=== PATIENT | female | born 1975 ===

== ENCOUNTER 2024-11-24 09:15 | Outpatient (AMB) | payer BC, SELFPAY ==
[2024-11-24 09:21] VITALS: BP 120/72
--- NOTE | 2024-11-24 09:21 | A.OFFVIS_ITS ---
Vital Signs 11/24/24 09:21 Height 5 ft 9 in BMI Reason not done Patient refused/unable BP 120/72 Intake Visit Reasons: KNOTTER Heavy Menses/PCP Ref Intake Note: Last pap 3 yrs ago hx cone bx 15 yrs ago Corrosion Engineer: Corrosion Engineer Present (Anu) Allergies No Known Allergies Allergy (Verified 11/24/24 09:30) Is last menstrual period known: Yes Last menstrual period: 11/08/24 HPI Comments Details: Patient is here today for a new patient consult due to heavy menstrual bleeding. Admits to having heavy menses her entire life. Cycles are regular, lasting 5-6 days, heavy for 4 days. She reports in the past she has had to have blood transfusions due to chronic anemia, sometimes forgets to take her iron tablets. She reports still actively having milk production after many years when squeezed out. Never had a mammogram, I don't want to know I have breast cancer , she would prefer not to treat. Has used the Mirena IUD in the past. History of anorexia pre years ago-lost 100 lb. Referral labs from 06/22/2024-TSH 3.06, hemoglobin 9.9, hematocrit 33.6. [facility] Medical History Anemia Surgical History Hx of tubal ligation Hx of dilation and curettage Family History Maternal Grandmother History of breast cancer Social History Alcohol intake: never Tobacco use type: Cigarette Cigarettes Per Day: 3 Sexual orientation: Straight/Heterosexual Gender identity: Female Female Reproductive History Menstrual Duration of menses: 6-7 days Date of last menstrual period: 11/08/24 control method: permanent sterilization Permanent Sterilization: BTL Total pregnancies: 8 Full term: 5 Number of Living Children: 5 Ab spontaneous: 3 Review of Systems Const All systems reviewed & are unremarkable except as noted in HPI and below Physical Exam Vital Signs: Last Vital Signs BP 120/72 11/24/24 09:21 Const General: cooperative, healthy appearing and no acute distress Orientation/consciousness: patient oriented x3 GI Inspection: Yes normal to inspection Palpation (GI): Soft to palpation and Other GI palpation findings present (Nontender) Rectal Exam - Female: visual inspection normal General: Yes bladder normal to palpation External Female Exam: normal appearance of the urethra Speculum Exam - Vagina: normal appearance of the vagina, normal palpation and normal vaginal discharge Speculum Exam - Cervix: normal appearance of the cervix, normal palpation and Other cervical findings present (Post Cone appearance, bled w/pap) Bimanual exam- vagina & uterus: normal bimanual exam, normal palpation, uterine size normal, bladder normal to palpation, normal palpation, uterine shape normal and non-tender Bimanual Exam- Adnexa, other: normal adnexae Neuro General: patient oriented x3 Results AMB Test Urine AMB Test Urine Negative Last Edit by MANNY Vargas on 11/24/24 09:39 Results Reviewed Results Reviewed: Laboratory Last Values [facility] Clinic Negative 11/24/24 09:38 Assessment & Plan Assessment & Plan (1) Abnormal uterine bleeding (AUB): Code(s): N93.9 - Abnormal uterine and vaginal bleeding, unspecified Category: Medical Plan: Plan ultrasound, CBC, Pap today, GC chlamydia and BV panel obtained. UPT is negative. Advised endometrial biopsy at follow up or hysteroscopy if indicated based on ultrasound findings. Counseled on treatment options including medications, hormonal IUD versus advanced interventions. Mirena IUD booklet given to review. Return to office for results and follow up care. Schedule annual exam visit. The patient expressed understanding and agreement with the plan of care. All of her questions and concerns were addressed to the best of my ability. (2) Discharge from breast: Code(s): N64.52 - Nipple discharge Plan Counseled regarding mammogram screening. Advised early detection with breast cancer screening preferred, rather than late diagnosis limiting treatment resulting in pore prognosis and outcome. Prolactin level ordered. Advised not to actively stimulate the breast tissue with for play or massage for several weeks before lab is drawn. Follow up breast exam after mammogram completed. The patient expressed understanding and agreement with the plan of care. All of her questions and concerns were addressed to the best of my ability. This note is constructed using voice recognition software. While every effort has been made to ensure accuracy, photo specialist errors may have been included. Orders: Orders US pelvic and transvaginal Today N93.9 - Abnormal uterine and vaginal bleeding, unspecified Complete Blood Count no Diff Today N93.9 - Abnormal uterine and vaginal bleeding, unspecified Pap Smear Today N93.9 - Abnormal uterine and vaginal bleeding, unspecified Prolactin Today N64.52 - Nipple discharge AMB HCG Urine Test Today N92.0 - Excessive and frequent menstruation with regular cycle, Z32.02 - Encounter for test, result negative Bacterial Vaginosis Panel Today . - Nipple discharge, N93.9 - Abnormal uterine and vaginal bleeding, unspecified CT NG by PCR Today . - Nipple discharge, N93.9 - Abnormal uterine and vaginal bleeding, unspecified HPV High risk Today . - Nipple discharge, N93.9 - Abnormal uterine and vaginal bleeding, unspecified Coding Level of Care Code New Pt Level 4 (70164) Diagnoses Abnormal uterine bleeding (AUB) N93.9 Discharge from breast
== END 2024-11-24 11:30 | disposition home or self-care (01) ==
LOC: HO.HWS 09:15
PROVIDERS: PCP Internal Medicine; Visit Provider Advanced Practice Midwife
DX: Z32.02 Encounter for pregnancy test, result negative (principal); N92.0 Excessive and frequent menstruation with regular cycle; N93.9 Abnormal uterine and vaginal bleeding, unspecified; N64.52 Nipple discharge
CPT/HCPCS: 99204

== ENCOUNTER 2024-11-24 09:15 | Outpatient (REF) | payer BC, SELFPAY ==
[2024-11-25 13:57] LABS: CT PCR NOT DETECTED (Not Detect.); NG PCR NOT DETECTED (Not Detect.)
[2024-11-25 16:54] LABS: Bacterial Vaginosis PCR POSITIVE (Negative); Candida Group PCR NOT DETECTED (Not Detect); Candida glab krusei PCR NOT DETECTED (Not Detect); Trichomonas vaginalis PCR NOT DETECTED (Not Detect)
[2024-12-01 14:10] LABS: HPV Genotype 16 Negative (Negative); HPV Genotype 18 Negative (Negative); HPV High Risk Positive (Negative)
== END 2024-11-24 09:16 | disposition home or self-care (01) ==
LOC: HO.LNP 09:15
PROVIDERS: PCP Internal Medicine; Visit Provider Advanced Practice Midwife
DX: N93.9 Abnormal uterine and vaginal bleeding, unspecified (principal); N64.52 Nipple discharge
CPT/HCPCS: 81025; 81515; 87491; 87591; 87626; 88175

== ENCOUNTER 2024-11-24 10:03 | Outpatient (REF) | payer BC, SELFPAY | END 2024-11-24 10:04 | disposition home or self-care (01) | LOC: HO.LAB 10:03 | PROVIDERS: Visit Provider Advanced Practice Midwife | DX: Z13.89 Encounter for screening for other disorder (principal) ==

== ENCOUNTER 2024-12-05 07:49 | Outpatient (REF) | payer BC, SELFPAY ==
[2024-12-05 08:28] LABS: Hematocrit 38.6 % (37.0-47.0); Hemoglobin 12.9 g/dl (12.0-16.0); Mean Corpuscular HGB Conc 33.4 g/dl (31.0-35.0); Mean Corpuscular Hemoglobin 29.7 pg (27.0-33.0); Mean Corpuscular Volume 88.9 fL (80.0-98.0); Mean Platelet Volume 9.5 fL (9.4-12.3); Platelet Count 234 X10*3/uL (160-400); Red Blood Count 4.34 X10*6/uL (4.20-5.50); Red Cell Distribution Width 12.7 % (11.0-16.0); White Blood Count 4.4 X10*3/uL (4.8-10.8)
[2024-12-06 05:48] LABS: Prolactin 12.9 ng/mL
== END 2024-12-05 07:50 | disposition home or self-care (01) ==
LOC: HO.LAB 07:49
PROVIDERS: PCP Internal Medicine; Visit Provider Advanced Practice Midwife
DX: N93.9 Abnormal uterine and vaginal bleeding, unspecified (principal); N64.52 Nipple discharge
CPT/HCPCS: 36415; 84146; 85027

== ENCOUNTER 2024-12-21 08:16 | Outpatient (AMB) | payer BC, SELFPAY ==
--- NOTE | 2024-12-21 08:23 | A.OFFVIS_ITS ---
Vital Signs 12/21/24 08:33 Height 5 ft 9 in BMI Reason not done Patient refused/unable Intake Visit Reasons: Colposcopy Barrel Bridge Assembler Required: No Information Interpreted: non-clinical & clinical Threader Operator: Threader Operator Present (Dori BRYANT) Accompanied by: Self / Same As Patient Allergies No Known Allergies Allergy (Verified 12/21/24 08:34) HPI Comments Details: Presenting referred from Radha Bose CNM regarding ascus/HPV high-risk posit hina, HPV 16/18 negative [facility] Medical History (Updated 12/21/24 @ 09:07 by Roverto Roman MD) Abnormal uterine bleeding (AUB) Anemia Surgical History (Updated 12/21/24 @ 09:07 by Roverto Roman MD) History of conization of cervix Hx of tubal ligation Hx of dilation and curettage Family History Maternal Grandmother History of breast cancer Social History Alcohol intake: never Tobacco use type: Cigarette Cigarettes Per Day: 3 Sexual orientation: Straight/Heterosexual Gender identity: Female Office Procedures Colposcopy Colposcopy: Pre-Procedure Counseling: Before beginning the procedure, I conducted comprehensive counseling with the patient. We thoroughly discussed the procedure itself, including its details, alternatives, and all associated risks. This included but not limited to the following complications such as bleeding, infection, and injury to the vagina, bladder, and vessels, as well as the potential need for transfusion with all its associated risks. Subsequently, the patient sign the consent. Pap smear result: LSIL. Urine test in office = Negative Procedure: During the procedure, the following steps were performed: A speculum was inserted, and acetic acid was applied. Colposcopy was conducted, allowing visualization of the transformation zone. Acetowhite lesions were identified at the 5+ 9+ 11+ 1 o'clock position. Cervical biopsies were obtained from the 5+ 9+ 11+ 1 o'clock position, followed by an endocervical curettage (ECC). Vaginoscopy of the upper vagina revealed no evidence of aceto-white lesions. Hemostasis was achieved using Monsel solution, and the patient tolerated the procedure well. Post-Procedure Instructions: The patient was advised to promptly contact the office or the after hours answering service or go to the emergency room if experiencing a temperature exceeding 100.4?F, abdominal pain, nausea/vomiting, or bleeding. Additionally, the patient was instructed to abstain from vaginal intercourse and bathtub use. The patient confirmed understanding of these instructions. Discharge Instructions: The patient was instructed to schedule a follow-up appointment in 2 weeks for further evaluation and management. Please note that this note was generated using a voice recognition program, and errors may have occurred during peoplesoft hrms developer. 66031-Zqoqrxwrc of cervix including upper vagina with biopsy and ECC Procedure code (CPT) selection complete Assessment & Plan Assessment & Plan (1) ASCUS with positive high risk HPV cervical: Code(s): R87.610 - Atypical squamous cells of undetermined significance on cytologic smear of cervix (ASC-US); R87.810 - Cervical high risk human papillomavirus (HPV) DNA test positive Category: Medical Plan: Discussed with the patient the result of her abnormal pap, its significance, risk of progression, persistence, and regression. the false positive/negative rate of a Pap smear as a screening test in detecting cervical cancer and the indication for a diagnostic test -colposcopy, biopsy, endocervical curettage. The patient verbalized understanding and agreed with the plan, all questions answered. Colposcopy biopsy ECC done, see procedure note Orders: Orders AMB HCG Urine Test Today Z32.02 - Encounter for test, result negative AMB Colposcopy Today R87.610 - Atypical squamous cells of undetermined significance on cytologic smear of cervix (ASC-US), R87.810 - Cervical high risk human papillomavirus (HPV) DNA test positive Coding Level of Care Code Procedure Only Diagnoses ASCUS with positive high risk HPV cervical R87.610; R87.810 CPT Codes Colposcopy - CPT: 10668-Zmnavldic of cervix including upper vagina with biopsy and ECC ([id number])
== END 2024-12-21 09:33 | disposition home or self-care (01) ==
LOC: HO.HWS 08:17
PROVIDERS: PCP Internal Medicine; Visit Provider Obstetrics & Gynecology
DX: R87.610 Atypical squamous cells of undetermined significance on cytologic smear of cervix (ASC-US) (principal); R87.810 Cervical high risk human papillomavirus (HPV) DNA test positive
CPT/HCPCS: 57454

== ENCOUNTER 2024-12-21 08:16 | Outpatient (REF) | payer BC, SELFPAY | END 2024-12-21 08:17 | disposition home or self-care (01) | LOC: HO.LNP 08:16 | PROVIDERS: PCP Internal Medicine; Visit Provider Obstetrics & Gynecology | DX: R87.610 Atypical squamous cells of undetermined significance on cytologic smear of cervix (ASC-US) (principal); R87.810 Cervical high risk human papillomavirus (HPV) DNA test positive | CPT/HCPCS: 57454; 88305; 88341; 88342 ==

== ENCOUNTER 2024-12-28 09:35 | Outpatient (AMB) | payer BC, SELFPAY ==
--- NOTE | 2024-12-28 09:35 | MHC.OFFVIS ---
Intake Visit Reasons: colpo results Allergies No Known Allergies Allergy (Verified 12/21/24 08:34) HPI Comments Details: The patient is scheduled a telehealth visit post colpo. The pathology showed the following: A. Endocervix, curettage: Endocervical glandular and squamous mucosa; negative for dysplasia. B. Cervix, 1:00, biopsy: Squamous mucosa; negative for dysplasia. C. Cervix, 5:00, biopsy: Squamous mucosa with inflammation and focal reactive changes; negative for dysplasia. D. Cervix, 9:00, biopsy: Squamous mucosa with inflammation and focal reactive changes; negative for dysplasia. E. Cervix, 11:00, biopsy: Squamous mucosa with focal inflammation and reactive changes; negative for dysplasia; no endocervical glandular component present. Comment: The atypical cells in the patient's previous Pap test ([id number]) are not seen in the current biopsy [facility] Medical History Abnormal uterine bleeding (AUB) Anemia Surgical History History of conization of cervix Hx of tubal ligation Hx of dilation and curettage Family History Maternal Grandmother History of breast cancer Social History Alcohol intake: never Tobacco use type: Cigarette Cigarettes Per Day: 3 Sexual orientation: Straight/Heterosexual Gender identity: Female Female Reproductive History Menstrual Age of Menarche: 4 Review of Systems Const All systems reviewed & are unremarkable except as noted in HPI and below Reports as per HPI and Reports no additional complaints GI Reports no additional complaints Reports no additional complaints Telehealth Telehealth Telehealth Platform: Telephone Location of provider rendering services: practice address Location of patient: address on file Patient Identification confirmed using: Name, : Yes Telehealth method: video Patient verbally consented to treatment: Yes Patient verbally consented to billing insurance company: Yes Patient informed of any privacy concerns related to visit: Yes Assessment & Plan Assessment & Plan (1) ASCUS with positive high risk HPV cervical: Code(s): R87.610 - Atypical squamous cells of undetermined significance on cytologic smear of cervix (ASC-US); R87.810 - Cervical high risk human papillomavirus (HPV) DNA test positive Category: Medical Plan: Discussed with the patient the pathology results of the colposcopy biopsies & endocervical curettage . Discussed with the patient the sensitivity specificity, positive and negative predictive value in detecting cervical cancer in addition discussed the regression, persistence and progression rates. Recommended co-testing in 12 months, if cytology and or HPV are abnormal will proceed was colposcopy biopsy and endocervical curettage, if lesions gets worse or stays persistent for 2 years will proceed with loop electric excision procedure. Instructions given to the patient to schedule a co test appointment in 1 year. All questions answered the patient verbalized understanding. I spent a total of 20 minutes reviewing the chart, talking to the patient via video and documenting in the medical record. Coding Level of Care Code Tele Est Pt Level 3 (64389) Diagnoses ASCUS with positive high risk HPV cervical R87.610; R87.810
== END 2024-12-28 09:49 | disposition home or self-care (01) ==
LOC: HO.HWS 09:35
PROVIDERS: PCP Internal Medicine; Visit Provider Obstetrics & Gynecology
DX: R87.610 Atypical squamous cells of undetermined significance on cytologic smear of cervix (ASC-US) (principal); R87.810 Cervical high risk human papillomavirus (HPV) DNA test positive
CPT/HCPCS: 99213

== ENCOUNTER → 2024-12-28 09:35 | Outpatient (BNVA) | payer BC, SELFPAY | PROVIDERS: PCP Internal Medicine; Visit Provider Obstetrics & Gynecology ==

== ENCOUNTER 2024-12-30 10:55 | Outpatient (REF) | payer BC, SELFPAY ==
--- NOTE | ~2024-12-30 | US_ITS ---
EXAMINATION: US PELVIS CLINICAL INFORMATION: Abnormal uterus and vaginal bleeding, unspecified. COMPARISON: None available. TECHNIQUE: Ultrasound of the pelvis is performed using both transabdominal and transvaginal transducers along with Doppler. Transvaginal imaging is performed due to inadequate visualization transabdominally. FINDINGS: Uterus: The uterus is in anteversion flexion and measures 10 x 6 x 6 cm. Volume: 207 cc. The double wall endometrial thickness is 22 mm. There is a 1.8 cm intrauterine heterogeneous mixed isohyperechoic soft tissue abnormality in the fundus. The endocervical canal is closed with small Nabothian cyst. Adnexa: There is flow on color Doppler interrogation of the ovaries.. No gross free fluid in the of the sac. Right ovary measures 4 x 1 x 3 cm. Volume: 3 cc. There are few scattered follicles. Left ovary measures 3 x 3 x 2 cm. Volume: 11 cc. There is a 2.1 cm anechoic structure. US/US pelvic and transvaginal IMPRESSION: Concerning 1.8 cm submucosal uterine cavity fibroid. Recommend direct inspection. No ovarian torsion. Probable 2.1 cm dominant follicle, left ovary. Electronically signed by: Immanuel Cobos MD 12/30/2024 12:21 PM EDT RP
== END 2024-12-30 10:56 | disposition home or self-care (01) ==
LOC: HO.US 10:55
PROVIDERS: PCP Internal Medicine; Visit Provider Advanced Practice Midwife
DX: N93.9 Abnormal uterine and vaginal bleeding, unspecified (principal)
CPT/HCPCS: 76830; 76856

== ENCOUNTER → 2024-12-30 10:56 | Outpatient (BNV) | payer BC, SELFPAY | PROVIDERS: PCP Internal Medicine; Visit Provider Radiology Diagnostic Radiology | DX: D25.0 Submucous leiomyoma of uterus (principal) | CPT/HCPCS: 76830; 76856 ==

== ENCOUNTER 2025-01-04 08:03 | Outpatient (AMB) | payer BC, SELFPAY ==
--- NOTE | 2025-01-04 08:03 | A.OFFVIS_ITS ---
Intake Visit Reasons: TV ultrasound follow up Intake Note: cell #[phone] Security Installation Sales Technician: Security Installation Sales Technician Present Allergies No Known Allergies Allergy (Verified 12/21/24 08:34) Is last menstrual period known: Yes HPI Comments Details: Tele Health Visit Total time I personally spent on visit and management today: 15 minutes. Time spent included review of pertinent office notes in the electronic health record; review of laboratory and imaging results; review of personal family medical history; discussing diagnosis and plan of care with the patient; documenting the encounter in the EMR. Patient presents to discuss: History of heavy menstrual bleeding. [facility] Medical History Abnormal finding on ultrasound Abnormal uterine bleeding (AUB) Anemia Surgical History History of conization of cervix Hx of tubal ligation Hx of dilation and curettage Family History Maternal Grandmother History of breast cancer Social History Alcohol intake: never Tobacco use type: Cigarette Cigarettes Per Day: 3 Sexual orientation: Straight/Heterosexual Gender identity: Female Female Reproductive History Menstrual Age of Menarche: 4 Review of Systems Const All systems reviewed & are unremarkable except as noted in HPI and below Endo Reports no additional complaints Physical Exam Const General: cooperative, healthy appearing and no acute distress Psych Appearance: well kempt Attitude: cooperative Thought process: Normal thought process present Telehealth Telehealth Telehealth Platform: All About [employer]. Location of provider rendering services: practice address Location of patient: address on file Patient Identification confirmed using: Name, : Yes Telehealth method: video Patient verbally consented to treatment: Yes Patient verbally consented to billing insurance company: Yes Patient informed of any privacy concerns related to visit: Yes Results Reviewed Results Reviewed: [address] [address] Ultrasound Report Signed Patient: Tata Louie MR#: [id number] : 1975 Acct:[id number] Age/Sex: 49 / F ADM Date: 12/30/24 Loc: . Attending Dr: Radha Bose CNM Ordering Physician: Radha Bose CNM Date of Service: 12/30/24 Procedure(s): US pelvic and transvaginal Accession Number(s): [id number] cc: Lainey Alatorre MD; Radha Bose CNM~ EXAMINATION: US PELVIS CLINICAL INFORMATION: Abnormal uterus and vaginal bleeding, unspecified. COMPARISON: None available. TECHNIQUE: Ultrasound of the pelvis is performed using both transabdominal and transvaginal transducers along with Doppler. Transvaginal imaging is performed due to inadequate visualization transabdominally. FINDINGS: Uterus: The uterus is in anteversion flexion and measures 10 x 6 x 6 cm. Volume: 207 cc. The double wall endometrial thickness is 22 mm. There is a 1.8 cm intrauterine heterogeneous mixed isohyperechoic soft tissue abnormality in the fundus. The endocervical canal is closed with small Nabothian cyst. Adnexa: There is flow on color Doppler interrogation of the ovaries.. No gross free fluid in the of the sac. Right ovary measures 4 x 1 x 3 cm. Volume: 3 cc. There are few scattered follicles. Left ovary measures 3 x 3 x 2 cm. Volume: 11 cc. There is a 2.1 cm anechoic structure. US/US pelvic and transvaginal IMPRESSION: Concerning 1.8 cm submucosal uterine cavity fibroid. Recommend direct inspection. No ovarian torsion. Probable 2.1 cm dominant follicle, left ovary. Electronically signed by: Immanuel Cobos MD 12/30/2024 12:21 PM EDT RP Dictated By: Immanuel Pena MD Signed By: <Electronically signed by Immanuel Khan MD in OV> 12/30/24 1221 DD/ 1117 TD/TT: 12/30/24 1139 Emergency Crew Supervisor: Assessment & Plan Assessment & Plan (1) Abnormal uterine bleeding (AUB): Code(s): N93.9 - Abnormal uterine and vaginal bleeding, unspecified Category: Medical Plan: IMPRESSION: Concerning 1.8 cm submucosal uterine cavity fibroid. Recommend direct inspection. No ovarian torsion. Probable 2.1 cm dominant follicle, left ovary Uterine findings most likely contributing to heavy menstrual periods and will resolve once treatment is completed. Monitor cycles for now. Report any abnormal uterine bleeding. See notes below. (2) Abnormal finding on ultrasound: Code(s): R93.89 - Abnormal findings on diagnostic imaging of other specified body structures Category: Medical Plan Discussed: Ultrasound findings IMPRESSION: Concerning 1.8 cm submucosal uterine cavity fibroid. Recommend direct inspection. No ovarian torsion. Probable 2.1 cm dominant follicle, left ovary. Recommendations for hysteroscopy evaluation. Appointment to be made with Dr. Roman for consult. Anticipatory guidance reviewed. The patient expressed understanding and agreement with the plan of care. All of her questions and concerns were addressed to the best of my ability. This note is constructed using voice recognition software. While every effort has been made to ensure accuracy, crown buffer errors may have been included. Coding Level of Care Code Tele Est Pt Level 3 (94738) Diagnoses Abnormal uterine bleeding (AUB) N93.9 Abnormal finding on ultrasound R93.89
== END 2025-01-04 09:31 | disposition home or self-care (01) ==
LOC: HO.HWS 08:03
PROVIDERS: PCP Internal Medicine; Visit Provider Advanced Practice Midwife
DX: N93.9 Abnormal uterine and vaginal bleeding, unspecified (principal); R93.89 Abnormal findings on diagnostic imaging of other specified body structures
CPT/HCPCS: 99213

== ENCOUNTER → 2025-01-04 08:03 | Outpatient (BNVA) | payer BC, SELFPAY | PROVIDERS: PCP Internal Medicine; Visit Provider Advanced Practice Midwife ==

== ENCOUNTER 2025-01-05 07:50 | Outpatient (REF) | payer BC, SELFPAY | END 2025-01-05 07:51 | disposition home or self-care (01) | LOC: HO.MAMMO 07:50 | PROVIDERS: PCP Internal Medicine; Visit Provider Advanced Practice Midwife | DX: Z12.31 Encounter for screening mammogram for malignant neoplasm of breast (principal) | CPT/HCPCS: 77063; 77067 ==

== ENCOUNTER → 2025-01-05 08:00 | Outpatient (BNV) | payer BC, SELFPAY | PROVIDERS: PCP Internal Medicine; Visit Provider Internal Medicine | DX: Z12.31 Encounter for screening mammogram for malignant neoplasm of breast (principal) | CPT/HCPCS: 77063; 77067 ==